=== PATIENT | male | born 1975 | race Caucasian/White ===

== ENCOUNTER 2017-05-15 16:55 | Emergency (ER) | payer OTHER, SELFPAY ==
[~2017-05-15] VITALS: Ht 185.4 cm; Wt 97.0 kg
[2017-05-15 17:00] VITALS: BP 149/91
[2017-05-15] MEDS ORDERED: CEFAZOLIN 1,000 MG ONE (17:53)
[2017-05-15] MEDS ORDERED: CEFAZOLIN 1,000 MG IM ONE (18:00)
[2017-05-15] MEDS ORDERED: DIPH,PERTUSS(ACELL),TET VAC/PF 0.5 ML IM-VACC ONE (18:00)
[2017-05-15] MEDS ORDERED: BACITRACIN ZINC OINT 500U/GM, 0.9 GM ONE (18:11)
== END 2017-05-15 18:33 | disposition home or self-care (01) ==
LOC: ED 18:27
DX: L03.113 Cellulitis of right upper limb (principal)
CPT/HCPCS: 29125; 96372; 99283; J0690